=== PATIENT | male | born 1975 | race Caucasian/White ===

== ENCOUNTER → 2024-05-12 16:28 | Outpatient (REF) | payer SELFPAY | LOC: RAD 16:28 | PROVIDERS: ATTENDING PHYSICIAN Nurse Practitioner Family | DX: E78.2 Mixed hyperlipidemia (principal); I10 Essential (primary) hypertension | CPT/HCPCS: 75571 ==

== ENCOUNTER → 2024-05-29 09:55 | Outpatient (REF) | payer BC, SELFPAY | LOC: RCS 09:55 | PROVIDERS: ATTENDING PHYSICIAN Nurse Practitioner Family | DX: F41.9 Anxiety disorder, unspecified (principal) | CPT/HCPCS: 93225; 93226 ==

== ENCOUNTER 2025-07-20 08:08 | Emergency (ER) | payer BC, SELFPAY ==
[2025-07-20 08:22] VITALS: BP 159/98
--- NOTE | 2025-07-20 08:43 | ED.GENMED ---
History of Present Illness
General
Chief Complaint: Abdominal Symptoms
Source: patient
Exam Limitations: none
Time Seen by Provider: 07/20/25 08:40
History of Present Illness
History of Present Illness:
50yoM with a history of hypertension, hyperlipidemia, GERD, and psoriasis on [place] presenting with his for evaluation of diarrhea. Symptoms began 3 days ago. He reports profuse watery diarrhea that has been constant over the past several
days. Bowel movements are described as watery with yellow mucus. He is also having generalized abdominal discomfort and chills. His temperature was reportedly low yesterday at 96.5. He was feeling lightheaded yesterday as well. He has not been
eating or drinking as much as he should. He denies any vomiting or hematochezia. No chest pain or shortness of breath. He had a similar episode in 2021 for which he was admitted. CT showed 'severe bowel wall thickening in the distal 60-80 cm of
small bowel consistent with small bowel enteritis such as may be seen with Crohn's disease' at that time. He was evaluated by gastroenterology who felt his symptoms were infectious in etiology. He denies any sick contacts, recent travel, recent
antibiotics, or suspicious food intake. 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 He had a colonoscopy last year which was reportedly normal. Only prior abdominal surgery is an appendectomy.
Past History
Past History
ED Past Medical History: None and Other (back pain)
ED Past Surgical History: None
Social History
Tobacco: Non-smoker
Personal:
Living: with family
Employment: Employed
Family History
Family History: Other
Phy Exam
General Physical Exam
General Presentation: no apparent distress
General Skin: warm and dry
General Habitus: normal
General Mental: alert
ENT Exam
ENT Exam: normocephalic
Pulmonary Exam
Pulmonary Exam: no respiratory distress
Gastrointestinal Exam
Gastrointestinal Exam: soft, non distended and other (+Generalized abdominal discomfort, seems to be worse in LLQ. Abdomen soft, non-distended. No rebound or guarding. )
Neurological Exam
Neurological Exam: alert
[place] Coma Scale
Eye Opening: Spontaneous
Verbal Response: Oriented
Motor Response: Obeys Commands
GCS Total Score: 15
Skin Exam
Skin Exam: normal color and warm/dry
Psychiatric Exam
Psychiatric Exam: normal mood/affect
Course
Orders/Labs/Results
Orders:
Orders
07/20/25 08:24
Electrocardiogram (*1) Urgent
Reason for Study: Chest Pain
EKG- Treatment ONCE
07/20/25 08:34
Complete Blood Count/With Diff Urgent
Comprehensive Metabolic Panel Urgent
Lipase Urgent
Magnesium Urgent
Comment: ADD ON
Troponin I Urgent
07/20/25 08:51
0.9% Sodium Chloride 1000 ml [Nss] 1,000 ml IV BOLUS
HYDROmorphone [Dilaudid] 0.5 mg IV NOW STA
Ketorolac [Toradol] 15 mg IV NOW STA
Ondansetron Injectable [Zofran] 4 mg IV NOW STA
07/20/25 08:52
Add On- LAB Urgent
Tests Added?: magnesium
CT Abd/pelvis W Iv Cont Urgent
Comment:
Reason For Exam: generalized abd pain, diarrhea
07/20/25 09:07
Stool Culture Urgent
ARNOLD Source: Feces/Stool
Specimen Description:
Date Specimen was Collected: 07/20/25
Time Specimen was Collected: 09:06
07/20/25 10:56
Dicyclomine [Bentyl] 20 mg PO NOW STA
Ketorolac [Toradol] 15 mg IV NOW STA
Abnormal Lab Results
07/20/25
08:34
WBC 11.5 H 10^3/uL
(4.8-10.8)
MCH 32.4 H pg
(27.0-31.0)
MPV 11.6 H fL
(7.4-10.4)
Abs Immat Gran (auto) 0.1 H 10^3/uL
(0-0.05)
Absolute Neuts (auto) 9.4 H 10^3/uL
(1.4-6.5)
Absolute Lymphs (auto) 1.0 L 10^3/uL
(1.2-3.4)
Absolute Monos (auto) 1.0 H 10^3/uL
(0.1-0.6)
Neutrophils % 81.9 H %
(42.2-75.2)
Lymphocytes % 8.3 L %
(20.5-51.1)
Sodium 132 L mmol/L
(135-145)
Glucose 110 H mg/dl
(70-99)
07/20/25 08:34
07/20/25 08:34
Vital Signs
Initial and Last Documented VS:
Initial Vital Signs
Temp Pulse Resp BP Pulse Ox
98.4 F 78 16 159/98 99
07/20/25 08:22 07/20/25 08:22 07/20/25 08:22 07/20/25 08:22 07/20/25 08:22
Last Documented Vital Signs
Temp Pulse Resp BP Pulse Ox
98.4 F 78 16 159/98 99
07/20/25 08:22 07/20/25 08:22 07/20/25 08:22 07/20/25 08:22 07/20/25 08:45
MDM/Problems Addressed
Differential Diagnosis Includes:
50yoM here with diarrhea, abd pain, chills x 3 days. He is hypertensive with otherwise stable vitals. He appears uncomfortable but is non-toxic. No signs of peritonitis on abdominal exam. Differential diagnosis includes: infectious diarrhea, viral
gastroenteritis, colitis, dehydration
Initial ED plan: EKG obtained in triage for L arm pain. He denies any CP/SOB. EKG shows NSR without ischemic changes. Will check abdominal labs, magnesium, stool culture, and CT abdomen. IV Zofran, Toradol, Dilaudid, and fluid bolus for symptoms.
*Pulse Oximetry
SaO2: 99
Oxygen Mode of Delivery: Room air
Patient hypoxic: no
*EKG
Interpreted by ED Provider?: Yes
EKG Intrepretation Date: 07/20/25
Heart Rate: 70
Rate: normal
Rhythm: sinus
Hustler: normal axis
Interval: normal interval
QRS Pattern: normal QRS
Ischemia: no ischemia
*Critical Care Note
Total Time (30-74mins, 75-104mins- exclusive of procedures): Not Applicable
Update Note
Update Note:
CT shows mild to moderate colitis of the left colon from the mid transverse to the sigmoid colon. White count is minimally elevated at 11.5. Sodium 132, remainder of electrolytes normal. Renal function within normal limits. Patient feeling
improved on reassessment. He only had 1 small BM throughout his ED stay. No indication for hospitalization and patient feels comfortable with discharge. Supportive care reviewed. Prescriptions provided for Bentyl and Zofran. Will defer
antibiotics pending stool culture results. Advised close follow-up with PCP and ED return precautions reviewed. Patient in agreement with plan and was discharged in stable condition.
ED Attending Note
-
Portions of this chart may have been created with voice recognition software.� Occasional wrong word or��sound alike� substitutions may have occurred due to the inherent limitations of voice recognition software.
Discharge Plan
Departure
Patient Disposition: Home (Routine Discharge)
Date of Disposition: 07/20/25
Time of Disposition: 10:58
Patient with high blood pressure during this ER visit?: Yes
Discharge Problem:
Acute colitis, Acute diarrhea
Instructions: Colitis (DC)
Prescriptions:
New
dicyclomine 20 mg tablet
20 mg PO QID PRN (Reason: abdominal pain) Qty: 20 0RF
ondansetron 4 mg tablet,disintegrating
4 mg PO Q6H PRN (Reason: nausea and vomiting) Qty: 20 0RF
No Action
Stelara 90 mg/mL Syringe
90 mg SC Q12W
Rx Instructions:
next injection 06/21/22, gets done at doctor's office
omeprazole 20 mg Capsule,Delayed Release(Dr/Ec)
20 mg PO DAILY
Referrals:
Cecile De Leon CRNP [Family Provider]
Activity Restrictions/Additional Instructions:
Take Bentyl as needed for abdominal cramping. Take Zofran as needed for nausea. Drink plenty of fluids and eat a bland diet (bananas, rice, applesauce, toast).
We will call you if your stool culture comes back positive.
Please follow-up with your family doctor in the next 48 hours. Return to the ER immediately with any new or worsening symptoms including fevers, bloody stool, or uncontrolled symptoms.
Interventions
Interventions:
*Neglect/Abuse Screening Last Done: 07/20/25 08:22
[id number] Assessment Last Done: 07/20/25 09:19
Discharge Date and Time
Print Language: PALAUAN
[2025-07-20 08:49] LABS: Hematocrit 43.0 % (39.0-52.0); Hemoglobin 15.7 g/dL (13.0-18.0); Mean Corp Hgb Conc. 36.5 g/dL (33.0-37.0); Mean Corpuscular Volume 88.8 fL (80.0-94.0); Nucleated Red Blood Cells % 0 % (-); Platelet Count 172 10^3/uL (130-400); Red Cell Dist. Width 12.4 % (11.5-14.5)
[2025-07-20 09:10] LABS: ALT (SGPT) 30 U/L (0-50); AST (SGOT) 32 U/L (17-59); Albumin 4.5 g/dl (3.5-5.0); Alkaline Phosphatase 96 U/L (38-126); Blood Urea Nitrogen 9 mg/dl (9-20); Calcium 9.3 mg/dl (8.4-10.2); Carbon Dioxide 23 mmol/L (22-30); Chloride 99 mmol/L (98-107); Glucose 110 mg/dl (70-99); Lipase 30 U/L (23-300); Magnesium 2.0 mg/dl (1.6-2.3); Potassium 4.1 mmol/L (3.5-5.1); Sodium 132 mmol/L (135-145); Total Protein 7.1 g/dl (6.3-8.2); eGFR > 60.00
[2025-07-20] MEDS: ZOFRAN 4 MG IV (09:16)
[2025-07-20] MEDS: NSS 1000 IV (09:16)
[2025-07-20] MEDS: TORADOL 15 MG IV ×2 (09:17→11:08)
[2025-07-20] MEDS: DILAUDID 0.5 MG IV (09:17)
[2025-07-20 09:19] LABS: Troponin I < 0.012 ng/ml
[2025-07-20] MEDS: BENTYL 20 MG PO (11:08)
== END 2025-07-20 11:36 | disposition home or self-care (01) ==
LOC: EMR 08:08
PROVIDERS: Emergency Medicine; EMERGENCY PHYSICIAN Student in an Organized Health Care Education/Training Program; FAMILY PHYSICIAN Nurse Practitioner Family
DX: K52.9 Noninfective gastroenteritis and colitis, unspecified (principal); I10 Essential (primary) hypertension; E78.5 Hyperlipidemia, unspecified
CPT/HCPCS: 99284; 96374; 96375; 96376; 96361; 74177; 80053; 83690; 83735; 84484; 85025; 87045; 87046; 87427; 93005; Q9967